=== PATIENT | female | born 1970 | race African-American/Black ===

== ENCOUNTER 2020-04-06 08:37 | Emergency (ER) | payer SELFPAY ==
[~2020-04-06] VITALS: Ht 170.2 cm; Wt 77.1 kg
--- NOTE | 2020-04-06 08:45 | NUR ---
ED Nurse Note: Pt walked in from home c/o left ankle pain and swelling s/p mechanical fall 2 days ago. Respirations even and unlabored on room air. Vitals stable as documented. A+Ox4, speaking in complete sentences.
--- NOTE | 2020-04-06 08:51 | Emergency Room Report ---
History of Present Illness General Chief Complaint: Lower Extremity Injury Source: Patient Present Illness HPI Patient is a 49-year-old female presents after increased left ankle pain. Had injury 2 days ago. Reports having missed a step while walking downstairs. Reports of increased pain to the medial side of the left ankle. Denies any other locations of pain. Has been having increased pain with weightbearing. Patient had been icing the area and had noticed persistent swelling. Allergies: Coded Allergies: No Known Allergies (Unverified , 04/06/20) COVID-19 Screening Contact w/high risk pt: No Experienced COVID-19 symptoms?: No COVID-19 Testing performed [employer]: No Patient History Past Medical History: see triage record Now: No Reviewed Nursing Documentation: PMH: Agreed; PSxH: Agreed Nursing Documentation-PMH Past Medical History: No Stated History Review of Systems All Other Systems: negative except mentioned in HPI Physical Exam Vital Signs Date Time Temp Pulse Resp B/P (MAP) Pulse Ox O2 Delivery O2 Flow Rate FiO2 04/06/20 08:40 96.8 67 16 115/67 (83) 99 Room Air General Appearance: well appearing, no apparent distress, alert, GCS 15 Head: normocephalic, atraumatic ENT: hearing grossly normal, normal voice Neck: full range of motion, supple Respiratory: chest non-tender, lungs clear, no respiratory distress, speaking full sentences Cardiovascular #1: normal inspection, no edema Musculoskeletal: swelling - Tenderness to the medial malleolus of the left ankle. Mild soft tissue swelling., no calf tenderness Neurologic: alert, motor strength/tone normal, director appointment III-XII nml as tested, oriented x3, normal gait Psychiatric: normal inspection, mood/affect normal Skin: no rash Medical Decision Making Last Vital Signs Date Time Temp Pulse Resp B/P (MAP) Pulse Ox O2 Delivery O2 Flow Rate FiO2 04/06/20 08:40 96.8 67 16 115/67 (83) 99 Room Air Mehran Espinoza MD Apr 06, 2020 08:51
--- NOTE | 2020-04-06 09:05 | NUR ---
ED Nurse Note: xray @ bedside
[2020-04-06] MEDS ORDERED: IBUPROFEN600 M1 ORAL (09:23)
[2020-04-06 09:30] VITALS: BP 122/72
--- NOTE | 2020-04-06 09:30 | NUR ---
ED Nurse Note: Pt's Pt cleared by health care Provider for discharge. DC instructions/prescription was given and explained to pt and verbalized understanding of teachings. All medical deviecs such as ID band removed. Pt is AAO x4, ambulatory and left with all personal belongings.
--- NOTE | 2020-04-06 17:12 | Diagnostic Imaging Report ---
Indication: Traumatic pain Technique: 3 views of the left ankle Comparison: none Findings: No acute fractures. No dislocations. The joint spaces are preserved Impression: Negative
== END 2020-04-06 09:30 | disposition home or self-care (01) ==
LOC: EMR 08:59
DX: M25.572 Pain in left ankle and joints of left foot (principal)
CPT/HCPCS: 99283